=== PATIENT | male | born 1965 | race Caucasian/White ===

== ENCOUNTER 2017-10-24 08:50 | Day surgery (SDC) | payer OTHER ==
[~2017-10-24 08:50] MED LIST: EPHEDrine SULFATE 50 MG/5 ML SYG
[2017-10-24] MEDS ORDERED: LIDOCAINE 1% (MPF) 30 ML INJ (09:57)
[2017-10-24] MEDS ORDERED: GELATIN SIZE 100 SPONGE (10:10)
[2017-10-24] MEDS ORDERED: THROMBIN 5000 UNIT VIAL (10:10)
[2017-10-24] MEDS ORDERED: PROPOFOL 20 ML (10:11)
[2017-10-24] MEDS ORDERED: MIDAZOLAM 1 MG/ML 2 ML INJ (10:11)
[2017-10-24] MEDS ORDERED: LIDOCAINE 2% (SDV) 5 ML INJ (10:11)
[2017-10-24] MEDS ORDERED: ONDANSETRON 4 MG INJ (10:11)
[2017-10-24] MEDS ORDERED: FENTAnyl 50 MCG/ML VIAL (10:11)
[2017-10-24] MEDS ORDERED: IOHEXOL 300MG/ML 30 ML BTL (10:11)
[2017-10-24] MEDS ORDERED: DEXAMETHASONE 4 MG/ML 1 ML INJ (10:12)
[2017-10-24] MEDS ORDERED: MEPERIDINE 25 MG INJ IV (10:30)
[2017-10-24] MEDS ORDERED: morphine (1 MG/ML) 10ML SYRINGE IV (10:30)
[2017-10-24] MEDS ORDERED: LABETALOL HCL 20MG INJ IV (10:30)
[2017-10-24] MEDS ORDERED: HYDROmorphONE (0.2 MG/ML) 10ML SYG IV ×2 (10:30)
[2017-10-24] MEDS ORDERED: ONDANSETRON 4 MG INJ IV (10:30)
[2017-10-24] MEDS ORDERED: FENTAnyl 50 MCG/ML VIAL IV (10:30)
[2017-10-24] MEDS ORDERED: KETOROLAC 30 MG INJ (10:36)
[2017-10-24] MEDS ORDERED: CLINDAMYCIN 600 MG/D5W (PMX) 50 ML IVPB (10:39)
[2017-10-24] MEDS: HEPARIN 1000 UNITS/ML 10 ML INJ (10:59)
== END 2017-10-24 13:15 | disposition home or self-care (01) ==
LOC: SDS 08:50
DX: I83.12 Varicose veins of left lower extremity with inflammation (principal); I10 Essential (primary) hypertension; E78.5 Hyperlipidemia, unspecified
CPT/HCPCS: 37765; 88304

== ENCOUNTER 2018-12-09 11:59 | Day surgery (SDC) | payer OTHER ==
[2018-12-09] MEDS ORDERED: IOHEXOL 300MG/ML 30 ML BTL (12:51)
[2018-12-09] MEDS ORDERED: GELATIN SIZE 100 SPONGE (12:51)
[2018-12-09] MEDS ORDERED: THROMBIN (BOVINE) 5,000 UNIT VIAL TP (12:51)
[2018-12-09] MEDS: LIDOCAINE 1% (MPF) 30 ML INJ (14:35)
[2018-12-09] MEDS: HEPARIN 1000 UNITS/ML 10 ML INJ (14:36)
[2018-12-09] MEDS ORDERED: LIDOCAINE 2% (SDV) 5 ML INJ (14:52)
[2018-12-09] MEDS ORDERED: MEPERIDINE 100 MG INJ (14:52)
[2018-12-09] MEDS ORDERED: PROPOFOL 20 ML (14:52)
[2018-12-09] MEDS ORDERED: CEFAZOLIN 1 GM INJ (14:52)
[2018-12-09] MEDS ORDERED: EPHEDrine 50 MG INJ (15:08)
[2018-12-09] MEDS ORDERED: VANCOMYCIN 1 GM (PMX) 250 ML (15:29)
== END 2018-12-09 17:45 | disposition home or self-care (01) ==
LOC: SDS 11:59
DX: I83.892 Varicose veins of left lower extremity with other complications (principal); I10 Essential (primary) hypertension
CPT/HCPCS: 37700; 88304